=== PATIENT | female | born 1990 | race African-American/Black ===

== ENCOUNTER 2020-08-14 09:28 | Emergency (ER) | payer SELFPAY ==
--- NOTE | 2020-08-14 11:50 | Emergency Room Report ---
History of Present Illness General Chief Complaint: To Be Triaged Present Illness HPI Patient left without being seen or triaged. Medical Decision Making Diagnostic Impression: Primary Impression: LWBS Disposition: LEFT W/OUT BEING SEEN Condition: Unknown Adina Lauren M.D. Aug 14, 2020 11:50
== END 2020-08-14 10:00 | disposition left against medical advice (07) ==
LOC: EMR 10:00
DX: Z00.00 Encounter for general adult medical examination without abnormal findings (principal); Z53.21 Procedure and treatment not carried out due to patient leaving prior to being seen by health care provider